=== PATIENT | female | born 1950 | race Caucasian/White ===

== ENCOUNTER → 2016-06-09 | Outpatient (CLI) | payer MEDICARE, OTHER ==
[~2016-06-09] MED LIST: ACCUPRIL40MGTAB; ADVAIR 250/28 DISKU1 IH; DESYREL DIVIDO150 M1 PO; DILTIAZEM360 MG PO; LORTAB 5/500 501 TAB PO; SINGULAIR10 MG PO; SINGULAIR4 MG PO; SYNTHROID0.075 MG/T PO; blood pressure med
== END ==
LOC: MC.RAD 09:58
DX: Z12.31 Encounter for screening mammogram for malignant neoplasm of breast (principal)

== ENCOUNTER → 2017-07-19 | Outpatient (CLI) | payer MEDICARE, OTHER | LOC: COL.RAD 09:56 | DX: I71.01 Dissection of thoracic aorta (principal); R06.02 Shortness of breath; Z95.2 Presence of prosthetic heart valve; I51.7 Cardiomegaly | CPT/HCPCS: Q9967 ==

== ENCOUNTER → 2017-07-25 | Outpatient (CLI) | payer MEDICARE, OTHER | LOC: MC.RAD 09:50 | DX: Z12.31 Encounter for screening mammogram for malignant neoplasm of breast (principal) ==

== ENCOUNTER → 2018-08-21 | Outpatient (CLI) | payer MEDICARE, OTHER | LOC: MC.RAD 09:32 | DX: Z12.31 Encounter for screening mammogram for malignant neoplasm of breast (principal) ==

== ENCOUNTER 2019-10-04 12:56 | Day surgery (SDC) | payer MEDICARE, OTHER ==
[~2019-10-04] VITALS: Ht 170.2 cm; Wt 69.1 kg
[2019-10-04] VITALS (7 sets, daily range): BP systolic 96–130; BP diastolic 59–90; PULSE 54–84; TEMP 98.3
[~2019-10-04 12:56] MED LIST changes: +SYNTHROID0.05 MG/TA PO; -SYNTHROID0.075 MG/T PO
[2019-10-04] MEDS ORDERED: PROTONIX 40MG T40 MG PO (14:06)
[2019-10-04] MEDS ORDERED: TOPROL XL 50MG50 MG PO (14:07)
[2019-10-04] MEDS ORDERED: HCTZ 25MG TAB25 MG PO (14:07)
[2019-10-04] MEDS ORDERED: K-TAB20 PO (14:08)
[2019-10-04] MEDS ORDERED: NORVASC 10MG10 MG PO (14:09)
[2019-10-04] MEDS ORDERED: IRON TABLETS325 MG PO (14:09)
[2019-10-04] MEDS ORDERED: ZYRTEC 10MG10 MG PO (14:10)
[2019-10-04] MEDS ORDERED: ASPIRIN E.C. 8181 MG PO (14:10)
[2019-10-04] MEDS ORDERED: COUMADIN 5MG5 MG/TAB PO ×2 (14:10→16:47)
[2019-10-04 14:34] LABS: MEAN CELL VOLUME 96 fl (80.0-100.0); MEAN CORPUSCULAR HEMOGLOBIN 32 pg (27.0-31.0); MEAN CORPUSCULAR HGB CONC 33 g/dl (33.0-37.0); MEAN PLATELET VOLUME 10.9 fl (7.4-10.4); PLATELET COUNT 150 K/mm3 (130-400); RED BLOOD COUNT 4.36 M/mm3 (4.10-5.30); REDCELL DISTRIBUTION WIDTH-CV 14.3 % (11.5-14.5)
[2019-10-04 14:43] LABS: INR 1.2 (0.8-3.0); PROTHROMBIN TIME 13.6 SECONDS (9.7-12.8)
[2019-10-04 14:44] LABS: CALCIUM 10.4 mg/dL (8.4-10.2); CREATININE, serum 0.99 (0.52-1.25); MAGNESIUM 1.8 mg/dL (1.6-2.3); POTASSIUM 4.4 mmol/L (3.4-5.0)
[2019-10-04 14:46] LABS: PARTIAL THROMBOPLASTIN TIME 40.9 SECONDS (26.0-37.0)
[2019-10-04 15:14] LABS: THYROID STIMULATING HORMONE 6.77 uIU/mL (0.465-4.680)
[2019-10-04] MEDS ORDERED: CLEOCIN HCL300 MG PO (16:47)
[2019-10-04] MEDS ORDERED: MULTAQ400 MG PO (16:48)
--- NOTE | 2019-10-04 17:30 | NUR ---
Pt care was assumed from Juvenal QUILES at 1555, pt has been awake and alert, feeling good since that time. She has remained in sinus rhythm, with some variability in her rate from 50's to 70's. we have reviewed dc, rx and f/u instructions and pt denies any questions or concerns at time of departure. Pt has been able to drink with no problem, she is ambulatory with steady gait at time of departure. IV dc'd with cath intact, dressing applied. Pt is escorted to exit via wheelchair.
[2019-10-07] MEDS ORDERED: MIRAPEX0.25 MG PO (13:29)
[2019-10-09] MEDS ORDERED: SYNTHROID0.075 MG/T PO (13:56)
== END 2019-10-04 17:50 | disposition home or self-care (01) ==
LOC: COL.CAR 12:56
PROVIDERS: Internal Medicine Cardiovascular Disease
DX: I08.2 Rheumatic disorders of both aortic and tricuspid valves (principal); I71.00 Dissection of unspecified site of aorta; I48.91 Unspecified atrial fibrillation; I10 Essential (primary) hypertension; Z88.0 Allergy status to penicillin; Z79.82 Long term (current) use of aspirin; Z80.9 Family history of malignant neoplasm, unspecified
CPT/HCPCS: J1650; J2704; J7120

== ENCOUNTER → 2019-12-03 | Outpatient (CLI) | payer MEDICARE, OTHER ==
[~2019-12-03] MED LIST changes: +ASPIRIN E.C. 8181 MG PO; +CLEOCIN HCL300 MG PO; +COUMADIN 5MG5 MG/TAB PO; +HCTZ 25MG TAB25 MG PO; +IRON TABLETS325 MG PO; +K-TAB20 PO; +MIRAPEX0.25 MG PO; +MULTAQ400 MG PO; +NORVASC 10MG10 MG PO; +PROTONIX 40MG T40 MG PO; +SYNTHROID0.075 MG/T PO; +TOPROL XL 50MG50 MG PO; +ZYRTEC 10MG10 MG PO
== END ==
LOC: COL.LAB 08:19
DX: Z01.810 Encounter for preprocedural cardiovascular examination (principal); I08.1 Rheumatic disorders of both mitral and tricuspid valves; Z20.828 Contact with and (suspected) exposure to other viral communicable diseases

== ENCOUNTER 2020-07-03 06:07 | Day surgery (SDC) | payer MEDICARE, OTHER ==
[~2020-07-03] VITALS: Ht 170.2 cm; Wt 75.6 kg
[2020-07-03] MEDS ORDERED: XARELTO20 MG PO (07:03)
[2020-07-03] MEDS ORDERED: VOLTAREN GEL 1%1 TU TP (07:04)
[2020-07-03 07:05] VITALS: BP 130/75; PULSE 50; TEMP 98.1
[2020-07-03 07:50] VITALS: BP 98/63; PULSE 54
[2020-07-03 08:00] VITALS: BP 115/73; PULSE 56
--- NOTE | 2020-07-03 08:04 | NUR ---
PT RETURNED TO BAY#5 FROM ENDO RECOVERY ROOM PER CART. PT A/OX3. PT IN ROOM WITH HER TALLKING WITH PT. TOLERATING ICE CHIPS WITHOUT NAUSEA OR VOMITING. DENIES PAIN AT THIS TIME.LUNG SOUNDS CLEAR, HR REGULAR WITH MURMUR NOTED, PT STATES HAVING A CARDIAC LOOP. BOWEL SOUNDS HYPACTIVE, PRESENT. WILL CONT TO MONITOR.
[2020-07-03 08:15] VITALS: BP 121/82; PULSE 59
[2020-07-03 08:17] VITALS: BP 121/82; PULSE 56
--- NOTE | 2020-07-03 08:17 | NUR ---
PT ASKING FOR SALTINES AND SPRITE. PT TOLERATING FOOD AND FLUIDS WELL. DENIES NAUSEA OR PAIN AT THIS TIME.
[2020-07-03 08:30] VITALS: BP 118/70; PULSE 58
--- NOTE | 2020-07-03 08:30 | NUR ---
Pt up to restroom with stand by assitance. Pt back to room when done. Pt denies needs. Call light within reach.
--- NOTE | 2020-07-03 08:46 | NUR ---
Initial visit attempt; Patient already taken back for Procedure however [employer] brought her in her room to wait for her and offered God's blessings for a successful procedure for Mel and God's blessings for their family.
--- NOTE | 2020-07-03 09:00 | NUR ---
IV site discontinued with all parts intact. Discharge instructions reviewed. Pt up to dress. Call light within reach.
--- NOTE | 2020-07-03 09:15 | NUR ---
Pt escorted to private car via wheel chair. Pt accompanied home by her .
== END 2020-07-03 09:15 | disposition home or self-care (01) ==
LOC: SDCO 06:07
DX: K29.31 Chronic superficial gastritis with bleeding (principal); K21.9 Gastro-esophageal reflux disease without esophagitis; R10.13 Epigastric pain; I10 Essential (primary) hypertension; J45.909 Unspecified asthma, uncomplicated; Z20.822 Contact with and (suspected) exposure to COVID-19; G25.81 Restless legs syndrome; Z95.2 Presence of prosthetic heart valve; Z79.01 Long term (current) use of anticoagulants; Z79.82 Long term (current) use of aspirin; Z79.899 Other long term (current) drug therapy; Z88.0 Allergy status to penicillin; Z95.818 Presence of other cardiac implants and grafts; Z79.890 Hormone replacement therapy
CPT/HCPCS: J2704; J7120

== ENCOUNTER 2020-11-04 09:30 | Emergency (ER) | payer MEDICARE, OTHER ==
[~2020-11-04] VITALS: Ht 170.2 cm; Wt 66.8 kg
[~2020-11-04 09:30] MED LIST changes: +VOLTAREN GEL 1%1 TU TP; +XARELTO20 MG PO
[2020-11-04 09:36] VITALS: TEMP 97.7
[2020-11-04] MEDS ORDERED: LIPITOR 40MG TA40 MG PO (09:57)
[2020-11-04] MEDS ORDERED: LASIX 20MG TABL20 MG PO (09:58)
[2020-11-04] MEDS ORDERED: TIKOSYN0.125 MG PEG (09:59)
[2020-11-04 10:48] LABS: BASO % 0.7 % (0.0-2.0); EOS # 0.2 (0.0-0.7); EOS % 3.8 % (0-4.0); GRAN # 2.6 (1.4-6.5); GRAN % 42.2 % (42.2-75.2); HEMATOCRIT 46.3 % (37.0-47.0); HEMOGLOBIN 14.7 g/dl (12.5-16.0); LYMPH # 2.6 (1.2-3.4); LYMPH % 42.2 % (20.0-51.0); MEAN CELL VOLUME 95 fl (80.0-100.0); MEAN CORPUSCULAR HEMOGLOBIN 30 pg (27.0-31.0); MEAN CORPUSCULAR HGB CONC 32 g/dl (33.0-37.0); MEAN PLATELET VOLUME 12.5 fl (7.4-10.4); MONO # 0.7 (0.1-0.6); MONO % 10.9 % (1.7-9.3); PLATELET COUNT 138 K/mm3 (130-400); REDCELL DISTRIBUTION WIDTH-CV 15.9 % (11.5-14.5)
[2020-11-04 11:18] LABS: TROPONIN-I 0.018 ng/mL (0.000-0.035)
[2020-11-04 11:37] LABS: THYROID STIMULATING HORMONE 1.49 uIU/mL (0.465-4.680)
[2020-11-04 11:59] LABS: ALBUMIN 4.3 gm/dL (3.5-5.0); BILIRUBIN,TOTAL 0.5 mg/dL (0.0-1.0); CALCIUM 9.4 mg/dL (8.4-10.2); CREATININE, serum 0.83 (0.52-1.25); TOTAL PROTEIN 7.7 gm/dL (6.4-8.2)
[2020-11-04 11:59] LABS: COLLECTION METHOD CLEAN CATCH
[2020-11-04 12:10] LABS: MUCOUS Present /lpf; PH 6 (5-8); URINE APPEARANCE Clear; URINE BACTERIA None Seen /hpf; URINE BILIRUBIN Negative (NEGATIVE); URINE BLOOD Negative (NEGATIVE); URINE COLOR Yellow; URINE GLUCOSE Negative (NEGATIVE); URINE KETONE Negative (NEGATIVE); URINE LEUKOCYTE ESTERASE Negative (NEGATIVE); URINE NITRATE Negative (NEGATIVE); URINE PROTEIN(semi-quant) Negative (NEGATIVE); URINE RBC 0-2 /hpf; URINE UROBILINOGEN Negative (NEGATIVE)
[2020-11-04 12:34] LABS: SQUAMOUS EPITHELIAL 0-2 /hpf
[2020-11-04 13:15] VITALS: BP 128/86; PULSE 73
== END 2020-11-04 13:16 | disposition home or self-care (01) ==
LOC: COL.ER 09:30
PROVIDERS: Emergency Medicine; Physician Assistant
DX: R51.9 Headache, unspecified (principal); R42 Dizziness and giddiness; R25.1 Tremor, unspecified; H53.8 Other visual disturbances; T40.425A Adverse effect of tramadol, initial encounter; I48.91 Unspecified atrial fibrillation; I10 Essential (primary) hypertension; E03.9 Hypothyroidism, unspecified; F41.9 Anxiety disorder, unspecified; Z79.899 Other long term (current) drug therapy; Z79.01 Long term (current) use of anticoagulants; Z79.890 Hormone replacement therapy; Z79.82 Long term (current) use of aspirin

== ENCOUNTER → 2020-11-30 | Outpatient (CLI) | payer MEDICARE, OTHER ==
[~2020-11-30] MED LIST changes: +LASIX 20MG TABL20 MG PO; +LIPITOR 40MG TA40 MG PO; +TIKOSYN0.125 MG PEG; +TOPROL XL 25MG25 MG PO
== END ==
LOC: MC.RAD 13:30
DX: Z12.31 Encounter for screening mammogram for malignant neoplasm of breast (principal)

== ENCOUNTER 2021-02-12 16:59 | Emergency (ER) | payer MEDICARE, OTHER ==
[~2021-02-12] VITALS: Ht 170.2 cm; Wt 68.2 kg
[~2021-02-12 16:59] MED LIST changes: -TOPROL XL 25MG25 MG PO
[2021-02-12 17:54] VITALS: TEMP 98.5
[2021-02-12 18:00] LABS: BASO # 0.1 (0.0-0.2); BASO % 0.5 % (0.0-2.0); EOS # 0.2 (0.0-0.7); EOS % 1.5 % (0-4.0); GRAN # 7.3 (1.4-6.5); HEMATOCRIT 44.1 % (37.0-47.0); HEMOGLOBIN 14.8 g/dl (12.5-16.0); LYMPH # 2.4 (1.2-3.4); LYMPH % 21.8 % (20.0-51.0); MEAN CELL VOLUME 98 fl (80.0-100.0); MEAN CORPUSCULAR HEMOGLOBIN 33 pg (27.0-31.0); MEAN CORPUSCULAR HGB CONC 34 g/dl (33.0-37.0); MEAN PLATELET VOLUME 11.2 fl (7.4-10.4); MONO # 1.1 (0.1-0.6); MONO % 9.7 % (1.7-9.3); PLATELET COUNT 161 K/mm3 (130-400); RED BLOOD COUNT 4.51 M/mm3 (4.10-5.30); REDCELL DISTRIBUTION WIDTH-CV 14.2 % (11.5-14.5)
[2021-02-12 18:03] LABS: INR 1.4 (0.8-3.0); PROTHROMBIN TIME 15.6 SECONDS (9.7-12.8)
[2021-02-12 18:44] LABS: ALBUMIN 4.3 gm/dL (3.4-4.8); BILIRUBIN,TOTAL 0.4 mg/dL (0.2-1.2); CALCIUM 9.2 mg/dL (8.4-10.2); CREATININE, serum 1.49 mg/dL (0.57-1.11); POTASSIUM 3.6 mmol/L (3.5-4.5); TOTAL PROTEIN 7.6 gm/dL (6.2-8.1)
[2021-02-12 18:50] LABS: TROPONIN-I 0.026 ng/mL (0.00-0.033)
[2021-02-12] MEDS ORDERED: TOPROL XL 25MG25 MG PO (21:42)
[2021-02-12 21:53] VITALS: BP 129/96; PULSE 115
== END 2021-02-12 21:53 | disposition home or self-care (01) ==
LOC: COL.ER 16:59
PROVIDERS: Nurse Practitioner
DX: I48.91 Unspecified atrial fibrillation (principal); Z79.01 Long term (current) use of anticoagulants; Z79.899 Other long term (current) drug therapy
CPT/HCPCS: J2250; J3010

== ENCOUNTER → 2021-02-15 | Outpatient (CLI) | payer MEDICARE, OTHER ==
[~2021-02-15] MED LIST changes: +TOPROL XL 25MG25 MG PO
== END ==
LOC: ZCOL.LAB 09:07
DX: Z01.812 Encounter for preprocedural laboratory examination (principal); Z79.01 Long term (current) use of anticoagulants; I48.0 Paroxysmal atrial fibrillation; I07.1 Rheumatic tricuspid insufficiency; I71.01 Dissection of thoracic aorta

== ENCOUNTER → 2022-01-06 | Outpatient (CLI) | payer MEDICARE, OTHER | LOC: MC.RAD 10:47 | DX: Z12.31 Encounter for screening mammogram for malignant neoplasm of breast (principal) ==

== ENCOUNTER → 2023-02-15 | Outpatient (CLI) | payer MEDICARE, OTHER | LOC: CANSCHCLI → MC.RAD 10:30 | DX: Z12.31 Encounter for screening mammogram for malignant neoplasm of breast (principal); M47.816 Spondylosis without myelopathy or radiculopathy, lumbar region; M43.16 Spondylolisthesis, lumbar region; Z98.890 Other specified postprocedural states ==

== ENCOUNTER → 2023-03-01 | Outpatient (CLI) | payer MEDICARE, OTHER | LOC: MHCPAIN 15:24 | DX: M54.50 Low back pain, unspecified (principal); M48.062 Spinal stenosis, lumbar region with neurogenic claudication; M51.36 Other intervertebral disc degeneration, lumbar region; M47.816 Spondylosis without myelopathy or radiculopathy, lumbar region | CPT/HCPCS: G0463 ==

== ENCOUNTER → 2023-05-22 | Outpatient (CLI) | payer MEDICARE, OTHER ==
[~2023-05-22] MED LIST changes: +Iohexol 300 - 10 ML VIAL ONE; +Lidocaine PF 1% (10 MG/ML) 5 ML VIAL ONE; +Triamcinolone 40 MG/ML 1 ML VIAL ONE
== END ==
LOC: MHCPAIN 09:34
DX: M47.898 Other spondylosis, sacral and sacrococcygeal region (principal); M54.50 Low back pain, unspecified; M53.3 Sacrococcygeal disorders, not elsewhere classified
CPT/HCPCS: J3301; Q9967

== ENCOUNTER → 2023-07-04 | Outpatient (CLI) | payer MEDICARE, OTHER ==
[~2023-07-04] MED LIST changes: -Iohexol 300 - 10 ML VIAL ONE; -Lidocaine PF 1% (10 MG/ML) 5 ML VIAL ONE; -Triamcinolone 40 MG/ML 1 ML VIAL ONE
== END ==
LOC: MHCPAIN 11:17
DX: M54.50 Low back pain, unspecified (principal); M53.3 Sacrococcygeal disorders, not elsewhere classified; M47.816 Spondylosis without myelopathy or radiculopathy, lumbar region
CPT/HCPCS: G0463

== ENCOUNTER → 2023-08-29 | Outpatient (CLI) | payer MEDICARE, OTHER ==
[~2023-08-29] MED LIST changes: +Lidocaine PF 1% (10 MG/ML) 5 ML VIAL ONE; +Triamcinolone 40 MG/ML 1 ML VIAL ONE
== END ==
LOC: MHCPAIN 10:48
DX: M54.50 Low back pain, unspecified (principal); M54.31 Sciatica, right side; M79.18 Myalgia, other site; M53.3 Sacrococcygeal disorders, not elsewhere classified
CPT/HCPCS: G0463; J3301

== ENCOUNTER → 2023-10-25 | Outpatient (CLI) | payer MEDICARE, OTHER ==
[~2023-10-25] MED LIST changes: -Lidocaine PF 1% (10 MG/ML) 5 ML VIAL ONE; -Triamcinolone 40 MG/ML 1 ML VIAL ONE
== END ==
LOC: MHCPAIN 14:17
DX: M54.50 Low back pain, unspecified (principal); M48.062 Spinal stenosis, lumbar region with neurogenic claudication; M51.36 Other intervertebral disc degeneration, lumbar region; M47.816 Spondylosis without myelopathy or radiculopathy, lumbar region; M16.0 Bilateral primary osteoarthritis of hip
CPT/HCPCS: G0463

== ENCOUNTER → 2024-02-19 | Outpatient (CLI) | payer MEDICARE | LOC: MC.RAD 12:44 | DX: Z12.31 Encounter for screening mammogram for malignant neoplasm of breast (principal) ==